=== PATIENT | male | born 1930 | race African-American/Black ===

== ENCOUNTER 2019-02-14 13:23 | Emergency (ER) | payer MEDICARE ==
[~2019-02-14] VITALS: Ht 185.4 cm; Wt 90.9 kg
[2019-02-14] MEDS ORDERED: METO-416 PO (14:17)
[2019-02-14] MEDS ORDERED: CLOP75TA32 PO (14:17)
[2019-02-14] MEDS ORDERED: AMLO5TAB66 PO (14:18)
[2019-02-14] MEDS ORDERED: LOSA50TA65 PO (14:18)
[2019-02-14] MEDS ORDERED: OMEP20 PO (14:23)
[2019-02-14] MEDS ORDERED: QUET25TA34 PO (14:23)
[2019-02-14] MEDS ORDERED: TERA10CA4 PO (14:23)
[2019-02-14] MEDS ORDERED: FINA1TAB17 PO (14:23)
[2019-02-14] MEDS ORDERED: CARB100C9 PO (14:23)
[2019-02-14 14:51] LABS: BASOPHILS % (AUTO) 0.3 % (0.0-2.0); EOSINOPHILS % (AUTO) 1.9 % (1.0-6.0); HEMATOCRIT 39.3 % (41-53); HEMOGLOBIN 13.1 g/dL (13.5-17.5); LYMPHOCYTES # (AUTO) 0.6 K/uL (1.0-4.8); LYMPHOCYTES % (AUTO) 6.7 % (22.0-44.0); MEAN CORPUSCULAR HEMOGLOBIN 32.5 pg (26.0-34.0); MEAN CORPUSCULAR HGB CONC 33.4 G/dL (31.0-37.0); MEAN CORPUSCULAR VOLUME 97 fL (80-100); MONOCYTES # (AUTO) 0.6 K/uL (0.1-1.0); MONOCYTES % (AUTO) 6.6 % (2.0-9.0); NEUTROPHILS # (AUTO) 7.1 K/uL (1.8-7.7); NEUTROPHILS % (AUTO) 84.5 % (40.0-70.0); PLATELET COUNT (AUTO) 140 K/uL (150-450); RED BLOOD CELL COUNT(AUTO) 4.03 MIL/uL (4.50-5.90); RED CELL DISTRIBUTION WIDTH 14.2 % (11.5-14.5)
[2019-02-14 15:01] LABS: ANION GAP 6 mmol/L (8-16); CALCIUM, TOTAL 8.3 mg/dL (8.8-10.5); CARBON DIOXIDE 27 mmol/L (22-29); CHLORIDE 105 mmol/L (98-107); CREATININE 1.16 mg/dL (0.60-1.30); GLUCOSE,RANDOM 104 mg/dL (70-110); POTASSIUM 3.8 mmol/L (3.5-5.1); SODIUM SERUM 138 mmol/L (136-145); UREA NITROGEN, BLOOD 18 mg/dL (7-18)
[2019-02-14 15:02] LABS: GLOMERULAR FILTR. RATE CALC > 60 mL/min (>60)
[2019-02-14 15:07] LABS: ALANINE AMINOTRANSFERASE 17 U/L (12-78); ALBUMIN 3.1 g/dL (3.4-5.0); ALKALINE PHOSPHATASE 136 U/L (46-116); ASPARTATE AMINOTRANSFERASE 17 U/L (15-37); BILIRUBIN,TOTAL 0.3 mg/dL (0.1-1.0); TOTAL PROTEIN, SERUM 7.1 g/dL (6.4-8.2)
[2019-02-14 16:54] VITALS: BP 145/86
== END 2019-02-14 17:05 | disposition home or self-care (01) ==
LOC: EMS 13:24
DX: S09.90XA Unspecified injury of head, initial encounter (principal); R56.9 Unspecified convulsions; I48.91 Unspecified atrial fibrillation; K21.9 Gastro-esophageal reflux disease without esophagitis; I10 Essential (primary) hypertension; W05.0XXA Fall from non-moving wheelchair, initial encounter; Y93.01 Activity, walking, marching and hiking; Y92.89 Other specified places as the place of occurrence of the external cause; Y99.8 Other external cause status
CPT/HCPCS: 70450; 72125